=== PATIENT | female | born 1960 | race Hispanic/Latino ===

== ENCOUNTER 2019-02-23 14:27 | Emergency (ER) | payer BC ==
[~2019-02-23] VITALS: Ht 160 cm; Wt 73.0 kg
--- OUTSIDE RECORDS SUMMARY | 2019-02-23 14:29 | XMS REPORT | Encounter Summary ---
Author Organization Unknown Address [address] [place] [address] Phone [phone] Reason for Visit Screening - TB Instructions 1. Tuberculosis screening PPD (purified protein derivative), skin test - Patient was advised to follow-up with [facility] within 48-72 hours. Tubersol 5 tub. unit/0.1 mL intradermal injection solution Discussion Note Pt is in NAD; Verbalizes understanding of all instructions with no questions at this time. Patient educational handouts: No information available. Plan of Care Patient Instructions Return in 48-72 hrs for TB reading. If not, the skin test will be considered invalid and will have to be repeated. In case of emergency call 911 or go to nearest ER. Reminders Provider Appointments None recorded. Lab PPD (Purified Protein Derivative), Skin Test 01/12/2018 [facility] Referral None recorded. Procedures None recorded. Surgeries None recorded. Imaging None recorded. Medications Name Start Date azithromycin 250 mg tablet TK 2 TS PO FOR 1 DAY THEN TK 1 T PO QD FOR 4 DAYS BD Insulin Syringe U-500 1/2 mL 31 gauge x 15/64" USE DIRECTED ONCE DAILY WITH HUMULIN U-500 BD Ultra-Fine Cassy Pen Nitro 32 gauge x 5/32" USE 3 NEEDLES DAILY ciprofloxacin 500 mg tablet TK 1 T PO BID Flucelvax Quad 7909-3493 (PF) 60 mcg (15 mcg x 4)/0.5 mL IM syringe ADM 0.5ML IM UTD fluconazole 100 mg tablet TK 1 T PO QD FOR 7 DAYS fluticasone 50 mcg/actuation nasal spray,suspension SHAKE LQ AND U 2 SPRAYS IEN QD Jardiance 10 mg tablet TK 1 T PO QD levofloxacin 500 mg tablet TK 1 T PO QD loratadine 10 mg tablet TK 1 T PO QD montelukast 10 mg tablet TK 1 T PO QPM Novolog Flexpen U-100 Insulin aspart 100 unit/mL subcutaneous ADM 150 UNITS SC QD ProAir HFA 90 mcg/actuation aerosol inhaler INHALE 1 TO 2 PUFFS PO Q 4 TO 6 H PRN FOR COUGH Symbicort 160 mcg-4.5 mcg/actuation HFA aerosol inhaler INHALE 2 PUFFS PO BID Tresiba FlexTouch U-200 insulin 200 unit/mL (3 mL) subcutaneous pen INJ 65 UNITS SC BID. Tubersol 5 tub. unit/0.1 mL intradermal injection solution Inject 0.1 mL by intradermal route. venlafaxine ER 75 mg capsule,extended release 24 hr TK 1 C PO QD Medications Administered Name Date Tubersol 5 tub. unit/0.1 mL intradermal injection solution Inject 0.1 mL by intradermal route. [id number] Vitals None recorded. Lab Results None recorded. Allergies Code Code System Name Reaction Severity Status Onset NKDA Problems No Known Problems Procedures None recorded. Vaccine List None recorded. Social History None recorded. Past Encounters 01/12/2018 Tuberculosis Screening Taya Elkins, CAREER SERVICES MANAGER-C: [address] [place] [address], Ph. History of Present Illness Screening Request - TB Reported By: Patient Screening Request: BCG No prior BCG vaccination. PPD No past history of postive TB skin test (PPD), No previous severe local reaction to TB skin test (PPD). OTHER No prior vaccines within last month Review of Systems Screening - TB Reported By: Patient Symptoms during past year > 2 weeks, NOT associated with specific illness?: unexplained or low grade fever No fever. night sweats No night sweats. unexplained weight loss > 5 lbs No unexplained weight loss. persistent cough No persistent cough. shortness of breath No shortness of breath. coughing up blood (hemoptysis) No coughing up blood (hemoptysis). unusual fatigue No unusual fatigue. loss of appetite No loss of appetite. swollen neck glands No swollen neck glands Physical Exam Screening Reported By: Patient General Appearance: General: well-developed, well-nourished, no acute distress
--- OUTSIDE RECORDS SUMMARY | 2019-02-23 14:29 | XMS REPORT | Continuity of Care Document ---
Author Author [facility] Interface Address Unknown Phone Unavailable Problems Problem Status Onset Date Classification Date Reported Comments Source Tuberculosis screening 01/12/2018 Diagnosis 01/12/2018 [facility] Medications Medication Details Route Status Patient Instructions Ordering Provider Order Date Source Azithromycin 250 MG Oral Tablet azithromycin 250 mg tablet TK 2 TS PO FOR 1 DAY THEN TK 1 T PO QD FOR 4 DAYS Active [facility] BD Insulin Syringe U-500 1/2 mL 31 gauge x 15/64" BD Insulin Syringe U-500 1/2 mL 31 gauge x 15/64" USE DIRECTED ONCE DAILY WITH HUMULIN U-500 Active [facility] BD Ultra-Fine Cassy Pen [place] 32 gauge x 5/32" BD Ultra- Fine Cassy Pen [place] 32 gauge x 5/32" USE 3 NEEDLES DAILY Active [facility] Ciprofloxacin 500 MG Oral Tablet ciprofloxacin 500 mg tablet TK 1 T PO BID Active [facility] 0.5 ML influenza A virus A/ (H1N1) antigen 0.03 MG/ML / influenza A virus A/ (H3N2) antigen 0.03 MG/ML / influenza B virus B/ antigen 0.03 MG/ML / influenza B virus B/ antigen 0.03 MG/ML Prefilled Syringe [Flucelvax Quadrivalent [id number]] Flucelvax Quad 5084-5698 (PF) 60 mcg (15 mcg x 4)/0.5 mL IM syringe ADM 0.5ML IM UTD Active [facility] Fluconazole 100 MG Oral Tablet fluconazole 100 mg tablet TK 1 T PO QD FOR 7 DAYS Active [facility] Fluticasone propionate 0.05 MG/ACTUAT Metered Dose Nasal [place] fluticasone 50 mcg/actuation nasal spray,suspension SHAKE LQ AND U 2 SPRAYS IEN QD Active [facility] empagliflozin 10 MG Oral Tablet [Jardiance] Jardiance 10 mg tablet TK 1 T PO QD Active [facility] Levofloxacin 500 MG Oral Tablet levofloxacin 500 mg tablet TK 1 T PO QD Active [facility] Loratadine 10 MG Oral Tablet loratadine 10 mg tablet TK 1 T PO QD Active [facility] montelukast 10 MG Oral Tablet montelukast 10 mg tablet TK 1 T PO QPM Active [facility] 3 ML Insulin, Aspart, Human 100 UNT/ML Pen Injector [NovoLog] Novolog Flexpen U-100 Insulin aspart 100 unit/mL subcutaneous ADM 150 UNITS SC QD Active [facility] 200 ACTUAT Albuterol 0.09 MG/ACTUAT Metered Dose Inhaler [ProAir] ProAir HFA 90 mcg/actuation aerosol inhaler INHALE 1 TO 2 PUFFS PO Q 4 TO 6 H PRN FOR COUGH Active [facility] Budesonide 0.16 MG/ACTUAT / formoterol fumarate 0.0045 MG/ACTUAT Metered Dose Inhaler Symbicort 160 mcg-4.5 mcg/actuation HFA aerosol inhaler INHALE 2 PUFFS PO BID Active [facility] 3 ML insulin degludec 200 UNT/ML Pen Injector [Tresiba] Tresiba FlexTouch U-200 insulin 200 unit/mL (3 mL) subcutaneous pen INJ 65 UNITS SC BID. Active [facility] Purified Protein Derivative of Tuberculin 50 UNT/ML Injectable Solution [Tubersol] Tubersol 5 tub. unit/0.1 mL intradermal injection solution Inject 0.1 mL by intradermal route. Active [facility] 24 HR venlafaxine 75 MG Extended Release Oral Capsule venlafaxine ER 75 mg capsule,extended release 24 hr TK 1 C PO QD Active [facility] Allergies, Adverse Reactions, Alerts Substance Category Reaction Severity Reaction type Status Date Reported Comments Source Immunizations Immunization Date Given Site Status Last Updated Comments Source Results Order Name Results Value Reference Range Date Interpretation Comments Source Vital Signs Vital Sign Value Date Comments Source Encounters Location Location Details Encounter Type Encounter Number Reason For Visit Attending Provider ADM Date DC Date Status Source [place] - [facility] - [id number] Son-C: [address] [place] [address], Ph. [id number] Taya Elkins 01/12/2018 [facility] Procedures Procedure Code Date Perfomer Comments Source
[2019-02-23] MEDS ORDERED: ASPIRIN 81 MG CHEW TAB PO STA (14:52)
--- NOTE | 2019-02-23 15:13 | Diagnostic Imaging Report ---
Frontal and lateral views of the chest. HISTORY: Chest pain, jaw pain COMPARISON: None available. DISCUSSION: Lungs: The lungs are well inflated. No evidence of a consolidative pneumonia or pulmonary alveolar edema. Pleura: No pleural effusion or pneumothorax. Heart and mediastinum: The cardiomediastinal silhouette appears unremarkable. Bones and soft tissues: Appear unremarkable. IMPRESSION: No acute radiographic abnormality. Signed by: Dr. Bart Rashid D.O., M.M.M. on 02/23/2019 3:09 PM
--- NOTE | 2019-02-23 15:21 | NUR ---
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 PT STATES SHE DOES NOT WANT TO GO BY AMBULANCE TO [facility] AND EXPLAINED SHE WOULD NOT BE BILLED PER ER DIRECTOR AND OFFERED TO GIVE HIS NUMBER AND PT STATES SHE DIDNT BELIEVE THAT AND THAT HER INSURANCE WOULD BE BILLED. PT STATES SHE CALLED AND NURSE FRIEND OF HER'S WHO RECOMMENDED A FACTORY CLERK AT [facility] AND PT IS WANTING TO GO HOME. MD NOTIFIED AND AWARE AND AMA FORM PRINTED; MD TO ROOM TO TALK WITH PT NOW.
--- NOTE | 2019-02-23 15:30 | NUR ---
COPIES OF ALL LABS, EKG, CXR ALL GIVEN TO PT
== END 2019-02-23 15:33 | disposition left against medical advice (07) ==
LOC: FSED 14:27
DX: R07.89 Other chest pain (principal); E11.65 Type 2 diabetes mellitus with hyperglycemia; I10 Essential (primary) hypertension
CPT/HCPCS: 71046; 80053; 81003; 82553; 84484; 85025; 85379; 85610; 99284

== ENCOUNTER 2020-04-03 15:00 | Inpatient (IN) | payer BC, SELFPAY ==
[~2020-04-03] VITALS: Ht 160 cm; Wt 69.9 kg
--- OUTSIDE RECORDS SUMMARY | 2020-04-03 15:03 | XMS REPORT ---
Author Author [facility] t Organization [facility] Address [address] [place] [address] Phone Unavailable Care Team Providers Care Stakes Player Name Role Phone STEVE ALCIEA MD PCP Manju CHAN Attphys Unavailable Payers Payer Name Policy Type Policy Number Effective Date Expiration Date [facility] [id number] 2019 00:00:00 [facility] Problems This patient has no known problems. Allergies, Adverse Reactions, Alerts This patient has no known allergies or adverse reactions. Medications This patient has no known medications. Procedures This patient has no known procedures. Encounters Start Date/Time End Date/Time Encounter Type Admission Type [facility] Care Department Encounter ID Source 2019-02-23 14:27:00 2019-02-23 15:33:00 Departed Emergency Room 1 ERICK CHAN [facility] [id number] [facility] 2016-11-24 19:55:00 2016-11-24 19:55:00 Outpatient C [facility] MED [id number] [facility] Results Test Description Test Time Test Comments Results Result Comments Source CXR 2 VIEW - HOPD 2019-02-23 15:08:00 [facility] [address] [place], [place] [address] Patient Name: JOSE RODRIGUEZ MR #: [id number] : 1960 Age/Sex: 58/F Req #: [id number] Adm Physician: Ordered by: ERICK CHAN MD Report #: [id number] Location: [facility] Room/Bed: Procedure: [id number] HOPD/CXR 2 VIEW - HOPD Exam Date: 02/23/19 Exam Time: 1450 REPORT STATUS: Signed Frontal and lateral views of the chest. HISTORY: Chest pain, jaw pain COMPARISON: None available. DISCUSSION: Lungs: The lungs are well inflated. No evidence of a consolidative pneumonia or pulmonary alveolar edema. Pleura: No pleural effusion or pneumothorax. Heart and mediastinum: The cardiomediastinal silhouette appears unremarkable. Bones and soft tissues: Appear unremarkable. IMPRESSION: No acute radiographic abnormality. Signed by: Simi BargerOZachary, M.M.M. on 02/23/2019 3:09 PM Dictated By: DORY MORAN DO 1509 Transcribed By: MAC on 02/23/19 1509 COPY TO: ERICK CHAN MD
[2020-04-03] MEDS ORDERED: AZITHROMYCIN 500MG/NS 250 ML 250 ML IV STA (16:19)
[2020-04-03 16:31] LABS: BASOPHILS % 0.2 % (0.0-1.0); HEMOGLOBIN 15.2 g/dL (12.0-16.0); LYMPHOCYTES # (AUTO) 1.2 (1.0-3.2); LYMPHOCYTES % 19.8 % (18.0-39.1); MEAN CORPUSCULAR HEMOGLOBIN 30.5 pg (28-32); MEAN CORPUSCULAR HGB CONC 33.8 g/dL (31-35); MEAN CORPUSCULAR VOLUME 90.4 fL (81-99); MONOCYTES # (AUTO) 0.4 (0.2-0.8); NEUTROPHILS # (AUTO) 4.3 (2.1-6.9); NEUTROPHILS % 73.5 % (38.7-80.0); PLATELET COUNT 209 x10e3/uL (140-360); RED BLOOD COUNT 4.98 x10e6/uL (3.6-5.1); RED CELL DISTRIBUTION WIDTH 12.3 % (11.7-14.4)
[2020-04-03 16:47] LABS: ALANINE AMINOTRANSFERASE 17 IU/L (0-55); ALBUMIN/GLOBULIN RATIO 0.7 (0.8-2.0); ALKALINE PHOSPHATASE 86 IU/L (40-150); ANION GAP 19.3 mmol/L (8-16); BLOOD UREA NITROGEN 8 mg/dL (7-26); BUN/CREATININE RATIO 10 (6-25); CALCIUM 9.1 mg/dL (8.4-10.2); CARBON DIOXIDE 22 mmol/L (22-29); CHLORIDE 99 mmol/L (98-107); CREATINE KINASE 62 IU/L (29-168); CREATININE, SERUM 0.77 mg/dL (0.57-1.11); EST GLOMERULAR FILTRATION RATE > 60 ML/MIN (60-); GLUCOSE 271 mg/dL (74-118); POTASSIUM 4.3 mmol/L (3.5-5.1); SODIUM 136 mmol/L (136-145)
--- NOTE | 2020-04-03 18:00 | NUR ---
DR. GRANT AT BEDSIDE
--- NOTE | 2020-04-03 18:14 | Emergency Department Note ---
History of Present Illnes History of Present Illness Chief Complaint: Respiratory History of Present Illness This is a 59 year old female arrived with respiratory distress after testing + for COVID. Historian: Patient Arrival Mode: Car Onset quality: gradual Duration (how long): day(s) Relieving factors: none Exacerbating factors: none Associated symptoms: chest pain, cough, headaches, shortness of breath, weakness Past Medical/Family History Physician Review I have reviewed the patient's past medical and family history. Any updates have been documented here. Past Medical History Recent Fever: Yes (SUBJECTIVE) Clinical Suspicion of Infectio: Yes New/Unexplained Change in Ment: No Past Medical History: Diabetes Past Surgical History: None Social History Smoking Cessation: Never Smoker Counseling Performed: No Alcohol Use: Occasional Any Illegal Drug Use: No TB Exposure/Symptoms: No Physically hurt or threatened: No Other Last Tetanus: UTD Any Pre-Existing Lines (PICC,: No Is patient up to date on immun: Yes Last Flu: UTD Last Pneumovax: UTD Review of Systems Review of Systems Constitutional: no symptoms EENTM: no symptoms Cardiovascular: no symptoms Respiratory: as per HPI, cough, pain with cough, dyspnea Gastrointestinal: no symptoms Genitourinary: no symptoms Musculoskeletal: as per HPI Neurological: no symptoms Psychological: no symptoms Endocrine: no symptoms Hematological/Lymphatic: no symptoms Review of other systems All other systems reviewed and negative. Physical Exam Related Data Allergies: Coded Allergies: No Known Allergies (Unverified , 04/03/20) Triage Vital Signs Vital Signs Date Time Temp Pulse Resp B/P (MAP) Pulse Ox O2 Delivery O2 Flow Rate FiO2 04/03/20 15:29 99.8 103 20 132/80 95 Vital signs reviewed: Yes Physical Exam CONSTITUTIONAL Constitutional: well-developed, ill appearing HENT HENT: normocephalic, atraumatic, mucosae dry, nose normal HENT L/R: left ext ear normal, right ext ear normal EYES Eyes: PERRL, conjunctivae normal NECK Neck: ROM normal PULMONARY Pulmonary: effort normal, rhonchi CARDIOVASCULAR Cardiovascular: regular rhythm, heart sounds normal, capillary refill normal, normal rate GASTROINTESTINAL Abdominal: soft, nontender, bowel sounds normal GENITOURINARY Genitourinary: exam deferred SKIN Skin: warm, dry MUSCULOSKELETAL Musculoskeletal: ROM normal NEUROLOGICAL Neurological: alert, oriented x 3, no gross motor or sensory deficits PSYCHOLOGICAL Psychological: mood/affect normal, judgement normal Results Laboratory Result Diagram: 04/03/20 1605 04/03/20 1605 Laboratory Laboratory Tests Test 04/03/20 16:05 White Blood Count 5.82 x10e3/uL (4.8-10.8) Red Blood Count 4.98 x10e6/uL (3.6-5.1) Hemoglobin 15.2 g/dL (12.0-16.0) Hematocrit 45.0 % (34.2-44.1) Mean Corpuscular Volume 90.4 fL (81-99) Mean Corpuscular Hemoglobin 30.5 pg (28-32) Mean Corpuscular Hemoglobin Concent 33.8 g/dL (31-35) Red Cell Distribution Width 12.3 % (11.7-14.4) Platelet Count 209 x10e3/uL (140-360) Neutrophils (%) (Auto) 73.5 % (38.7-80.0) Lymphocytes (%) (Auto) 19.8 % (18.0-39.1) Monocytes (%) (Auto) 6.0 % (4.4-11.3) Eosinophils (%) (Auto) 0.0 % (0.0-6.0) Basophils (%) (Auto) 0.2 % (0.0-1.0) Neutrophils # (Auto) 4.3 (2.1-6.9) Lymphocytes # (Auto) 1.2 (1.0-3.2) Monocytes # (Auto) 0.4 (0.2-0.8) Eosinophils # (Auto) 0.0 (0.0-0.4) Basophils # (Auto) 0.0 (0.0-0.1) Absolute Immature Granulocyte (auto 0.03 x10e3/uL (0-0.1) Sodium Level 136 mmol/L (136-145) Potassium Level 4.3 mmol/L (3.5-5.1) Chloride Level 99 mmol/L (98-107) Carbon Dioxide Level 22 mmol/L (22-29) Anion Gap 19.3 mmol/L (8-16) Blood Urea Nitrogen 8 mg/dL (7-26) Creatinine 0.77 mg/dL (0.57-1.11) Estimat Glomerular Filtration Rate > 60 ML/MIN (60-) BUN/Creatinine Ratio 10 (6-25) Glucose Level 271 mg/dL (74-118) Calcium Level 9.1 mg/dL (8.4-10.2) Total Bilirubin 0.4 mg/dL (0.2-1.2) Aspartate Amino Transf (AST/SGOT) 30 IU/L (5-34) Alanine Aminotransferase (ALT/SGPT) 17 IU/L (0-55) Alkaline Phosphatase 86 IU/L (40-150) Creatine Kinase 62 IU/L (29-168) Creatine Kinase MB 0.20 ng/mL (0-5.0) Troponin I 0.002 ng/mL (0-0.300) Total Protein 7.1 g/dL (6.5-8.1) Albumin 3.0 g/dL (3.5-5.0) Globulin 4.1 g/dL (2.3-3.5) Albumin/Globulin Ratio 0.7 (0.8-2.0) Lab results reviewed: Yes Laboratory comments Hyperglycemia noted, 8 units regular insulin given Imaging Imaging results reviewed: Yes Critical Care Time Total Critical Care Time (min): 35 Critical care time exclusive o: separately billable procedures Critcal care necessary due to: respiratory failure Subsequent provider I assumed direction of critical care for this patient from another provider of my specialty. Assessment & Plan Assessment & Plan Problems: (1) Acute respiratory failure (2) COVID-19 Assessment & Plan Patient presented during the COVID-19 virus pandemic and has a clinical picture consistent with a COVID-19 source for sepsis. Thus, patient was treated for suspected viral sepsis rather than bacterial sepsis. Given the potential for ARDS and present suggestions of early data from COVID treatment in other areas, fluids were given judiciously and the bacterial sepsis guidelines were deviated from. For consideration of other sources, blood cultures, antibiotics and lactic acid will potentially be ordered. Will continue to monitor blood pressure and adjust fluid resuscitation accordingly." Last Vital Signs Date Time Temp Pulse Resp B/P (MAP) Pulse Ox O2 Delivery O2 Flow Rate FiO2 04/03/20 17:00 104 20 139/72 97 04/03/20 15:29 99.8 Medications in the ED Azithromycin 250 ml @ 200 mls/hr NOW STAT IV Last administered on 04/03/20at 17:00; Admin Dose 200 MLS/HR; Start 04/03/20 at 16:19; Stop 04/03/20 at 17:33; Status DC CHAYITO EVANS, April 03, 2020 18:14
--- NOTE | 2020-04-03 18:19 | Diagnostic Imaging Report ---
EXAMINATION: CHEST SINGLE (PORTABLE) INDICATION: ^Y ^COVID + ^[id number] ^[id number] COMPARISON: Chest radiograph 02/23/2019 FINDINGS: AP view TUBES and LINES: None. LUNGS: Lungs are well inflated. Bilateral mainly peripheral, left greater than right, patchy airspace opacities, new when compared to 02/23/2019. PLEURA: No pleural effusion or pneumothorax. HEART AND MEDIASTINUM: The cardiomediastinal silhouette is unremarkable.. BONES AND SOFT TISSUES: No acute osseous lesion. Soft tissues are unremarkable. UPPER ABDOMEN: No free air under the diaphragm. IMPRESSION: Radiographic findings consistent with bilateral viral pneumonia. Signed by: Dr. Jany Chavez M.D. on 04/03/2020 6:16 PM
[2020-04-03] MEDS ORDERED: INSULIN REGULAR, HUMAN 100 UNIT/1 ML 3ML VIAL IV NR (18:45)
[2020-04-03] MEDS: INSULIN LISPRO 100 UNIT/1 ML 3ML VIAL SQ SCH (20:09)
[2020-04-03] MEDS: CEFTRIAXONE SOD 1 GM/NS 50 ML 50 ML IV SCH (20:09)
[2020-04-03] MEDS: ENOXAPARIN SOD INJ 40 MG/0.4 ML SYR SC SCH (20:09)
[2020-04-03] MEDS: BENZONATATE 100 MG CAP PO PRN (20:29)
--- NOTE | 2020-04-03 22:54 | History and Physical ---
CHIEF COMPLAINT: Cough. HISTORY OF PRESENT ILLNESS: This is a 59-year-old woman, who recently lost her job and also her insurance. The patient has been sick for more than a week. About 5 days ago, the patient developed body achiness. Subsequently, she has developed severe dry cough to the point that it is causing her pleuritic chest pain, some subjective fever, chills, but nothing documented. No nausea, some diarrhea, not much of shortness of breath. Both her and her were tested for COVID, which came back positive. PAST MEDICAL AND SURGICAL HISTORY: 1. Diabetes. 2. Hysterectomy. MEDICATIONS: Please see medication reconciliation form. ALLERGIES: NONE. SOCIAL HISTORY: She does not smoke. FAMILY HISTORY: Positive for diabetes. REVIEW OF SYSTEMS: A 10-point review of system obtained and nothing else is significant other than what is stated in the HPI. PHYSICAL EXAMINATION: VITAL SIGNS: Temperature 99.8, pulse in the low 100, respiratory rate 20, blood pressure 139/72. GENERAL: No acute distress. SKIN: No rash. HEENT: Anicteric. Oropharynx is clear. LUNGS: Few crackles. HEART: Tachy. Normal S1 and S2. ABDOMEN: Soft, nondistended. MUSCULOSKELETAL: Painless range of motion in joints. NEUROLOGIC: Alert and oriented x3. Cranial nerves II through XII grossly intact. PSYCHIATRIC: No hallucination. LABORATORY DATA: Laboratory kimble, white count 5.8, hemoglobin 15, platelet count 209, creatinine 0.77, bicarb is 22, anion gap is 15. Troponin was negative. Chest x-ray shows bilateral viral pneumonia. Her sugar is 271. ASSESSMENT AND PLAN: 1. Coronavirus disease 2019 pneumonia. Empirically, we will put her on IV Rocephin and azithromycin. At this time, no hypoxia. The patient will also get some Tessalon Perles as needed for her cough. 2. Diabetes with hyperglycemia. The patient received a dose of IV regular insulin in the emergency room. For now, we will put her on sliding scale. 3. Gastrointestinal and deep vein thrombosis prophylaxes, on Lovenox. Yiching MD [facility]/BILL /[id number]
--- NOTE | 2020-04-03 23:39 | Consultation ---
DATE OF CONSULTATION: Pulmonary Critical Care Consultation CHIEF COMPLAINT: Cough, fevers, and positive COVID-19 test. HISTORY OF PRESENT ILLNESS: The patient is a 59-year-old woman. She has a history of cough and fevers for 5-7 days. She also notes some shortness of breath. She went to a [employer] [facility] 5 days ago and had a PCR test for COVID-19 that was positive. She now comes to the hospital with her , who is tachypneic and DKA, in addition to having COVID. She states that her symptoms have been fairly stable, although the cough is getting worse. PAST SURGICAL HISTORY: Status post hysterectomy. PAST MEDICAL HISTORY: 1. Hypertension. 2. No prior history of heart disease. 3. No prior history of asthma or COPD. SOCIAL HISTORY: The patient has never been a smoker. She is not a drinker. ALLERGIES: SHE HAS NO KNOWN DRUG ALLERGIES. FAMILY HISTORY: Family history is noncontributory. REVIEW OF SYSTEMS: She does have fever. She does not complain of headache. She has cough. She has some dyspnea. She has no chest pain. She does not have any abdominal pain. She has no nausea or vomiting. She is not complaining of any neurological problems. PHYSICAL EXAMINATION: VITAL SIGNS: Blood pressure is 139/72 and the heart rate is 103. The temperature is 99.8. Saturation is 97%. HEENT: Shows no facial swelling or erythema. CARDIAC: Reveals a regular rate and rhythm with normal S1 and S2. LUNGS: Auscultation of lungs reveals clear breath sounds bilaterally. There is no wheezing. ABDOMEN: Soft, nontender. There is no rebound or guarding. EXTREMITIES: Show no leg edema or calf tenderness. There is no cyanosis or clubbing. SKIN: Shows no rashes. NEUROLOGICAL: Shows no focal abnormalities. LABORATORY DATA: White blood cell count is 5.8, hemoglobin is 15.2, the platelet count is 209. The BUN to creatinine ratio is normal. The other electrolytes are within normal limits. Albumin is 3.0. RADIOGRAPHIC DATA: Chest x-ray shows radiographic findings consistent with bilateral viral pneumonia. IMPRESSION: 1. Viral pneumonia. 2. Coronavirus disease 2019 infection. 3. Hypertension. PLAN: 1. Tylenol and judicious use of IV fluids. 2. Zithromax. 3. Oxygen if needed. 4. The patient will receive the COVID antibodies through convalescent serum. MD THI Oden/BILL /[id number]
[2020-04-04] VITALS (8 sets, daily range): BP systolic 109–150; BP diastolic 58–69
[2020-04-04] MEDS ORDERED: SODIUM CHLORIDE 0.9% 250ML 250 ML ONE ×3 (00:50→17:17)
[2020-04-04] MEDS ORDERED: TRESIBA100 UNIT/1 SC (03:05)
[2020-04-04] MEDS ORDERED: JARDIANCE10 MG PO (03:05)
[2020-04-04 05:36] LABS: BASOPHILS % 0.2 % (0.0-1.0); HEMATOCRIT 39.8 % (34.2-44.1); HEMOGLOBIN 13.4 g/dL (12.0-16.0); LYMPHOCYTES # (AUTO) 1.9 (1.0-3.2); LYMPHOCYTES % 37.6 % (18.0-39.1); MEAN CORPUSCULAR HEMOGLOBIN 30.5 pg (28-32); MEAN CORPUSCULAR HGB CONC 33.7 g/dL (31-35); MEAN CORPUSCULAR VOLUME 90.5 fL (81-99); MONOCYTES # (AUTO) 0.3 (0.2-0.8); MONOCYTES % 6.1 % (4.4-11.3); NEUTROPHILS # (AUTO) 2.8 (2.1-6.9); NEUTROPHILS % 55.7 % (38.7-80.0); PLATELET COUNT 204 x10e3/uL (140-360); RED CELL DISTRIBUTION WIDTH 12.3 % (11.7-14.4)
[2020-04-04 06:02] LABS: ANION GAP 16.6 mmol/L (8-16); BLOOD UREA NITROGEN 8 mg/dL (7-26); BUN/CREATININE RATIO 13 (6-25); CALCIUM 8.5 mg/dL (8.4-10.2); CARBON DIOXIDE 21 mmol/L (22-29); CHLORIDE 101 mmol/L (98-107); CREATININE, SERUM 0.64 mg/dL (0.57-1.11); EST GLOMERULAR FILTRATION RATE > 60 ML/MIN (60-); GLUCOSE 243 mg/dL (74-118); POTASSIUM 3.6 mmol/L (3.5-5.1); SODIUM 135 mmol/L (136-145)
--- NOTE | 2020-04-04 07:15 | NUR ---
Received bedside shift report from night nurse. Patient awake at this time, alert. Call light within reach.
[2020-04-04] MEDS: INSULIN LISPRO 100 UNIT/1 ML 3ML VIAL SQ SCH ×4 (08:45→19:43)
--- NOTE | 2020-04-04 08:45 | NUR ---
Dr. Chavez notified of SIRS alert. Patient verbalizing headache. Ordered acetaminophen 650mg by mouth every six hours as needed for mild pain/fever. Order read back and verified.
[2020-04-04] MEDS: ACETAMINOPHEN 325 MG TAB PO PRN ×2 (09:35→17:18)
--- NOTE | 2020-04-04 11:41 | Progress Note ---
DATE: SUBJECTIVE: The patient feels better. She has less fever. She still has some cough and some mild dyspnea. PHYSICAL EXAMINATION: VITAL SIGNS: The patient is afebrile. Blood pressure is 133/63 and the saturation is 96% on 2 L. T-max is 99.9. HEENT: Shows no facial swelling or erythema. CARDIAC: Reveals a regular rate and rhythm with normal S1 and S2. LUNGS: Auscultation of lungs shows clear breath sounds bilaterally. There is no wheezing. ABDOMEN: Soft, nontender. There is no rebound or guarding. EXTREMITIES: Show no leg edema or calf tenderness. There is no cyanosis or clubbing. SKIN: Shows no rashes. NEUROLOGIC: Shows no focal abnormalities. LABORATORY DATA: White blood cell count is 5 and hemoglobin is 13.4. The platelet count is 204. BUN to creatinine ratio is 8 to 0.64. Carbon dioxide is 21. Chloride is 102. Blood sugar is 243. IMPRESSION: 1. Viral pneumonia. 2. Coronavirus disease 2019 infection. 3. Diabetes mellitus. PLAN: 1. Continue to monitor and control blood sugars. 2. The patient received convalescent plasma antibodies yesterday. 3. Tylenol as needed. 4. Cough suppressants as needed. MD THI Oden/BILL /[id number]
--- NOTE | 2020-04-04 12:01 | NUR ---
Called Dr. Chavez regarding patient verbalizing generalized aches and pain. Ordered Ibuprofen 600mg by mouth every eight hours as needed for pain. Tresiba and Jardiance not available, ordered to hold for now. Orders read back and verified.
[2020-04-04] MEDS: GUAIFENESIN/CODEINE 10 ML CUP PO PRN ×2 (12:39→20:55)
[2020-04-04] MEDS: IBUPROFEN 600 MG TAB PO PRN ×2 (12:39→20:55)
--- NOTE | 2020-04-04 13:41 | NUR ---
HISTORY OF PRESENT ILLNESS: This is a 59-year-old woman, who recently lost her job and also her insurance. The patient has been sick for more than a week. About 5 days ago, the patient developed body achiness. Subsequently, she has developed severe dry cough to the point that it is causing her pleuritic chest pain, some subjective fever, chills, but nothing documented. No nausea, some diarrhea, not much of shortness of breath. Both her and her were tested for COVID, which came back positive. PAST MEDICAL AND SURGICAL HISTORY: 1. Diabetes. 2. Hysterectomy. MEDICATIONS: Please see medication reconciliation form. ALLERGIES: NONE. SOCIAL HISTORY: She does not smoke. FAMILY HISTORY: Positive for diabetes. REVIEW OF SYSTEMS: A 10-point review of system obtained and nothing else is significant other than what is stated in the [id number]
--- NOTE | 2020-04-04 13:42 | NUR ---
LATE ENTERY CONSULT DICTATED
--- NOTE | 2020-04-04 13:43 | NUR ---
PROGRESS NOTE [id number]
--- NOTE | 2020-04-04 16:22 | Progress Note ---
DATE: SUBJECTIVE: Ms. Quispe received her convalescent plasma yesterday. Currently on Rocephin and azithromycin. No new complaints. Feels a little bit better. Vitals stable, afebrile, temperature heart rate 90, respiration 18. PHYSICAL EXAMINATION: GENERAL: She is currently alert. VITAL SIGNS: Stable, currently afebrile. HEENT: Anicteric. NECK: Supple. CHEST: Few crackles bilateral. COR: S1 and S2. No S3, S4, or murmurs. ABDOMEN: Soft. LABORATORY DATA: Her blood cultures are negative. Her white count is 5.1 and hemoglobin is 13. IMPRESSION: COVID-19, present on admission. Continue Rocephin. Continue azithromycin. Continue with oxygen. Continue supportive care. We will reassess in the morning. MD CASEY Tipton/BILL /[id number]
[2020-04-04] MEDS ORDERED: AZITHROMYCIN 500MG/NS 250 ML 250 ML IV SCH (16:45)
[2020-04-04] MEDS ORDERED: INSULIN DEGLUDEC 60 UNIT SC SCH (17:00)
[2020-04-04] MEDS: ENOXAPARIN SOD INJ 40 MG/0.4 ML SYR SC SCH (17:17)
--- NOTE | 2020-04-04 19:03 | NUR ---
Shift report given to night nurse. Patient in stable condition.
[2020-04-04] MEDS: CEFTRIAXONE SOD 1 GM/NS 50 ML 50 ML IV SCH (19:19)
--- NOTE | 2020-04-04 19:24 | NUR ---
Notified Dr Chavez regarding FSBS 426, order to give 12 units on sliding scale and call MD. Give sliding scale coverage and one time dose of lantus 20 units subq x1
[2020-04-04] MEDS ORDERED: INSULIN GLARGINE 100 UNITS/ML VIAL SQ NR (19:30)
--- NOTE | 2020-04-04 21:48 | Consultation ---
DATE OF CONSULTATION: 04/03/2020 REASON FOR CONSULTATION: Pneumonia and COVID-19. HISTORY OF PRESENT ILLNESS: This is a 59-year-old Turkish female, who recently lost her job and her insurance, comes in with fever, chills, cough, and shortness of breath. The patient does have a history of diabetes mellitus and hysterectomy. PAST MEDICAL HISTORY: As above. PAST SURGICAL HISTORY: As above. The patient was recently diagnosed with COVID-19, came to the emergency room. Her also has COVID-19. The patient is being admitted. The patient is seen and case discussed with Critical Care Internal Medicine. ALLERGIES: NKA. SOCIAL HISTORY: There is no smoking, drug abuse, or alcohol abuse. FAMILY HISTORY: Noncontributory. PHYSICAL EXAMINATION: GENERAL: She is alert and oriented, does not seem to be in any acute distress. VITAL SIGNS: Stable. Afebrile. HEENT: She is not icteric. NECK: Supple. CHEST: Few crackles. COR: S1 and S2. ABDOMEN: Soft. Bowel sounds present. No tenderness. EXTREMITIES: No edema. SKIN: No rash. IMPRESSION: COVID-19 present on admission. RECOMMENDATION: Discussed with Critical Care. We will admit. We will put her on Rocephin and azithromycin for also association with community-acquired pneumonia, bacterial. Discussed with the patient we will enroll her into convalescent plasma study. The patient did give her consent and discuss with the medical team. We will admit and we will give her oxygen, IV fluids, Rocephin and azithromycin for 5 days. Supportive care. Plasma as ordered. We will follow. MD CASEY Tipton/BILL /[id number]
[2020-04-04] MEDS: BENZONATATE 100 MG CAP PO PRN (22:53)
[2020-04-05] VITALS: BP 113/63
[2020-04-05] MEDS: GUAIFENESIN/CODEINE 10 ML CUP PO PRN (03:33)
[2020-04-05] MEDS: ACETAMINOPHEN 325 MG TAB PO PRN (03:33)
[2020-04-05 04:00] VITALS: BP 117/61
--- NOTE | 2020-04-05 06:30 | NUR ---
Patient resting in bed with call light within reach. No issues or concerns noted. Will continue to monitor.
[2020-04-05 07:57] VITALS: BP 126/63
[2020-04-05] MEDS: INSULIN LISPRO 100 UNIT/1 ML 3ML VIAL SQ SCH ×2 (08:00→11:54)
[2020-04-05] MEDS: BENZONATATE 100 MG CAP PO PRN (08:10)
[2020-04-05 09:00] VITALS: BP 126/63
[2020-04-05] MEDS ORDERED: EMPAGLIFLOZIN 20 MG PO SCH (09:00)
--- NOTE | 2020-04-05 09:21 | NUR ---
ASSESSMENT: Spiritual distress Telephonic visit. Pt worried about 's illness ([place] RM 192). Pt states she is "feeling better" but "I'm worried about my ." Intervention: Provided empathic listening and prayer. Provided information on how to reach fish stringer assembler, if needed. Outcome: Pt stated, "Thank you so much for your call." Will follow as able. [facility] O: [phone]
[2020-04-05 11:48] VITALS: BP 132/70
--- NOTE | 2020-04-05 12:35 | Progress Note ---
DATE: SUBJECTIVE: Ms. Quispe is feeling better today. There is no new complaint. She is worried about her . She also lost her insurance and she wants something cheaper for her diabetes, but overall she is feeling much better. PHYSICAL EXAMINATION: GENERAL: She is currently alert, oriented, does not seem in acute distress. VITAL SIGNS: Stable, afebrile. HEENT: She is not icteric. NECK: Supple. CHEST: Clear bilateral. HEART: S1, S2. No S3, S4. No murmur. ABDOMEN: Soft. Bowel sounds present. No tenderness. EXTREMITIES: No edema. IMPRESSION: 1. COVID-19 present on admission, could be discharged home. Supportive care. To push p.o. fluid. Bedrest. Self-quarantine at least 2 weeks. To recheck PCR in at least 2 weeks, if not longer. 2. Diabetes mellitus. Discussed with Dr. Chavez to discharge on some cheaper medication. He is thinking about metformin. Discussed with the patient. Rivera Mchugh MD [facility]/MODL /[id number]
--- NOTE | 2020-04-05 13:15 | Progress Note ---
DATE: SUBJECTIVE: The patient is better. She is afebrile. She still has some cough. PHYSICAL EXAMINATION: VITAL SIGNS: The blood pressure is 132/70, pulse is 76 and saturation is 96%. The respiratory rate is 18. HEENT: Shows no facial swelling or erythema. CARDIAC: Reveals regular rate and rhythm with normal S1 and S2. LUNGS: Auscultation of lungs reveals clear breath sounds bilaterally. There is no wheezing. ABDOMEN: Soft, nontender. There is no rebound or guarding. EXTREMITIES: Shows no leg edema or calf tenderness. IMPRESSION: 1. Viral pneumonia. 2. COVID-19 infection. 3. Hypertension. PLAN: 1. The patient is okay for discharge home. 2. Continue Tylenol and p.o. fluids at home. 3. Self quarantine at home. 4. The patient should follow up in 2 weeks for confirmation of improvement and retesting for COVID-19. Tyrel Bauman MD [facility]/BILL /[id number]
--- NOTE | 2020-04-05 14:32 | NUR ---
PATIENT DISCHARGED. IV ACCESS REMOVED, BLEEDING CONTROLLED & DRESSING APPLIED. DISCHARGE INSTRUCTIONS AND PRESCRIPTION GIVEN TO PATIENT. DENIED ANY QUESTIONS. WAITING FOR DAUGHTER TO ARRIVE AT THIS TIME. WCTM.
--- NOTE | 2020-04-05 14:46 | Discharge Summary ---
FINAL DIAGNOSIS: Coronavirus disease 2019 pneumonia. SECONDARY DIAGNOSIS: Diabetes. 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 Dr. Mchugh, Infectious Disease. 2. Dr. Bauman, Pulmonary. PROCEDURE/STUDIES PERFORMED: None. HISTORY: Per H and P. HOSPITAL COURSE: The patient was then admitted. Empirically, the patient was given Rocephin and azithromycin. The patient received Lovenox for chemical DVT prophylaxis. Since she lost her insurance, we wrote her prescription for metformin for the mean time. The patient was seen and examined today. The patient is not hypoxic at the time of discharge. CONDITION ON DISCHARGE: Improved. DISCHARGE MEDICATIONS: Please see medication reconciliation form. MD [facility]/BILL /[id number]
[2020-04-05] MEDS ORDERED: AZITHROMYCIN 250 MG TAB PO SCH (17:00)
== END 2020-04-05 15:31 | disposition home or self-care (01) | DRG 177 ==
LOC: ER 15:00 → ERHOLD 16:20 → IMCU 23:45
PROVIDERS: ADMIT Internal Medicine; ATTEND Internal Medicine
DX: U07.1 COVID-19 (principal); J12.89 Other viral pneumonia; J96.00 Acute respiratory failure, unspecified whether with hypoxia or hypercapnia; E11.65 Type 2 diabetes mellitus with hyperglycemia; Z90.710 Acquired absence of both cervix and uterus; Z83.3 Family history of diabetes mellitus; Z79.4 Long term (current) use of insulin
CPT/HCPCS: 36415; 71045; 80048; 80053; 82550; 82553; 82948; 84484; 85025; 86850; 86900; 87040; 87635; 96372; 99285; J0456; J0696; J1650; J1815; J7050; P9017

== ENCOUNTER 2024-12-19 12:05 | Emergency (ER) | payer MEDICARE, OTHER ==
[~2024-12-19] VITALS: Ht 160 cm; Wt 69.9 kg
[~2024-12-19 12:05] MED LIST: ASPIRIN EC81 MG PO; COZAAR25 MG PO; JARDIANCE10 MG PO; NITROSTAT0.4 MG SL; ONDANSETRON ODT4 MG PO; PRAVASTATIN SOD10 MG PO; TRESIBA100 UNIT/1 SC
[2024-12-19 12:30] VITALS: PULSE 83; RESP 15; TEMP 97.8
[2024-12-19 13:47] LABS: BASOPHILS % 0.2 % (0.0-1.0); EOSINOPHILS # (AUTO) 0.1 (0.0-0.4); EOSINOPHILS % 1.3 % (0.0-6.0); HEMATOCRIT 46.4 % (34.2-44.1); HEMOGLOBIN 15.3 g/dL (12.0-16.0); LYMPHOCYTES # (AUTO) 1.7 (1.0-3.2); LYMPHOCYTES % 20.2 % (18.0-39.1); MEAN CORPUSCULAR HEMOGLOBIN 31.4 pg (28-32); MEAN CORPUSCULAR VOLUME 95.3 fL (81-99); MONOCYTES # (AUTO) 0.6 (0.2-0.8); MONOCYTES % 7.4 % (4.4-11.3); NEUTROPHILS # (AUTO) 5.8 (2.1-6.9); NEUTROPHILS % 70.7 % (38.7-80.0); PLATELET COUNT 248 x10e3/uL (140-360); RED BLOOD COUNT 4.87 x10e6/uL (3.6-5.1); RED CELL DISTRIBUTION WIDTH 13.2 % (11.7-14.4); WHITE BLOOD COUNT 8.27 x10e3/uL (4.8-10.8)
[2024-12-19] MEDS: ONDANSETRON HCL INJ 2MG/ML 2ML 2 MG/ML VIAL IV STA (14:02)
[2024-12-19] MEDS: SODIUM CHLORIDE 0.9% 1000ML 1,000 ML IV SCH (14:02)
[2024-12-19 14:23] LABS: ALBUMIN 3.9 g/dL (3.5-5.0); ALBUMIN/GLOBULIN RATIO 1.2 (0.8-2.0); ANION GAP 16.6 mmol/L (8-16); BILIRUBIN,TOTAL 0.5 mg/dL (0.2-1.2); CREATININE, SERUM 0.76 mg/dL (0.57-1.11); POTASSIUM 3.6 mmol/L (3.5-5.1); TOTAL PROTEIN 7.2 g/dL (6.5-8.1)
[2024-12-19] MEDS ORDERED: IOPAMIDOL 370 MG/ML 100 ML INFUS..BTL INJ ONE (14:25)
[2024-12-19 14:29] LABS: TROPONIN I 0.004 ng/mL (0-0.300)
[2024-12-19 16:49] VITALS: BP 128/74; PULSE 74; RESP 18; TEMP 98.3; O2SAT 99
== END 2024-12-19 16:51 | disposition home or self-care (01) ==
LOC: ER 13:13
DX: R11.2 Nausea with vomiting, unspecified (principal); K29.70 Gastritis, unspecified, without bleeding; R10.12 Left upper quadrant pain; E11.65 Type 2 diabetes mellitus with hyperglycemia
CPT/HCPCS: 36415; 71045; 74177; 80053; 82550; 83690; 84484; 85025; 99284; J2405; J2470; J7030; Q9967

== ENCOUNTER → 2025-01-23 | Day surgery (SDC) | payer MEDICARE ==
[2025-01-22 12:45] LABS: BASOPHILS % 0.4 % (0.0-1.0); EOSINOPHILS # (AUTO) 0.1 (0.0-0.4); EOSINOPHILS % 1.4 % (0.0-6.0); HEMATOCRIT 46.5 % (34.2-44.1); HEMOGLOBIN 15.2 g/dL (12.0-16.0); LYMPHOCYTES % 27.3 % (18.0-39.1); MEAN CORPUSCULAR HEMOGLOBIN 31.3 pg (28-32); MEAN CORPUSCULAR HGB CONC 32.7 g/dL (31-35); MEAN CORPUSCULAR VOLUME 95.9 fL (81-99); MONOCYTES # (AUTO) 0.4 (0.2-0.8); MONOCYTES % 5.9 % (4.4-11.3); NEUTROPHILS # (AUTO) 4.6 (2.1-6.9); NEUTROPHILS % 64.7 % (38.7-80.0); PLATELET COUNT 230 x10e3/uL (140-360); RED BLOOD COUNT 4.85 x10e6/uL (3.6-5.1); RED CELL DISTRIBUTION WIDTH 12.9 % (11.7-14.4); WHITE BLOOD COUNT 7.17 x10e3/uL (4.8-10.8)
[~2025-01-23] MED LIST changes: +FENTANYL CITRATE/PF 100MCG/2 ML INJ ONE; +HYOSCYAMINE SULFATE 0.5 MG/ML INJ ONE; +LACTATED RINGER'S 1,000 ML ONE; +LIDOCAINE HCL 2% LOCAL INJ 5 ML SDV VIAL INJ ONE; +MOUNJARO2.5 MG/0.5 SC; +PROPOFOL IV EMULSION 50 ML IV ONE; +SEVOFLURANE INHAL SOLN 250 ML PEN BTL ONE; +VENLAFAXINE H37.5 M2 PO
[2025-01-23 11:00] VITALS: TEMP 97.6
[2025-01-23 11:20] VITALS: BP 114/67; PULSE 70; RESP 18; O2SAT 99
== END | disposition home or self-care (01) ==
LOC: OR 07:41
PROVIDERS: ATTEND Internal Medicine Gastroenterology
DX: K29.70 Gastritis, unspecified, without bleeding (principal); D12.0 Benign neoplasm of cecum; D21.4 Benign neoplasm of connective and other soft tissue of abdomen; K62.1 Rectal polyp; K31.89 Other diseases of stomach and duodenum; K57.30 Diverticulosis of large intestine without perforation or abscess without bleeding; K64.8 Other hemorrhoids; E11.9 Type 2 diabetes mellitus without complications; I10 Essential (primary) hypertension; E78.5 Hyperlipidemia, unspecified; R19.7 Diarrhea, unspecified; K75.81 Nonalcoholic steatohepatitis (NASH); K75.9 Inflammatory liver disease, unspecified; Z01.810 Encounter for preprocedural cardiovascular examination; Z01.812 Encounter for preprocedural laboratory examination; Z79.82 Long term (current) use of aspirin; Z79.4 Long term (current) use of insulin; Z79.899 Other long term (current) drug therapy
CPT/HCPCS: 36415; 43236; 43239; 43251; 45385; 85025; 93005; J1980; J2003; J2470; J2704; J3010; J7121; 45378